=== PATIENT | male | born 2000 | race Caucasian/White ===

== ENCOUNTER 2019-07-25 20:26 | Emergency (ER) | payer OTHER ==
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
[2019-07-25 23:52] VITALS: BP 144/82; PULSE 70; O2SAT 98
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
== END 2019-07-25 23:52 | disposition home or self-care (01) ==
LOC: ED 20:26
DX: V43.52XA Car driver injured in collision with other type car in traffic accident, initial encounter (principal); Y92.9 Unspecified place or not applicable
CPT/HCPCS: 73130; 99284

== ENCOUNTER 2022-03-21 20:54 | Emergency (ER) | payer OTHER ==
[2022-03-21 21:07] VITALS: O2SAT 98
[2022-03-21] MEDS ORDERED: Adacel Vial IM ONE ×2 (21:10→21:11)
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
[2022-03-21 21:17] VITALS: BP 139/86; PULSE 68
== END 2022-03-21 21:16 | disposition home or self-care (01) ==
LOC: ED 20:54
DX: Z23 Encounter for immunization (principal)
CPT/HCPCS: 90471; 90715; 99282